=== PATIENT | female | born 1990 | race Hispanic/Latino ===

== ENCOUNTER 2017-05-06 09:00 | Emergency (ER) | payer OTHER ==
[2017-05-06 09:11] VITALS: RESP 18; O2SAT 99
--- NOTE | 2017-05-06 09:28 | ED PDOC ---
Lower Extremity Pain/Injury Time Seen by Provider: 05/06/17 09:04 Chief Complaint (Nursing): Lower Extremity Problem/Injury Chief Complaint (Provider): Toe Pain History Per: Patient History/Exam Limitations: no limitations Current Symptoms Are (Timing): Still Present Additional Complaint(s): Ashley Pak, a 26 year old female, presents to the ED complaining of left 5th digit toe pain. The patient states that she was dancing and hit her toe against furniture. The patient she has dislocated her toe before and was able to fix it on her own but this time she cannot. She reports that she had not taken anything for pain. Past Medical History Reviewed: Historical Data, Nursing Documentation, Vital Signs Vital Signs: Last Vital Signs Temp 98.4 F 05/06/17 09:10 Pulse 61 05/06/17 09:10 Resp 18 05/06/17 09:10 BP 116/66 05/06/17 09:10 Pulse Ox 99 05/06/17 09:10 - Medical History PMH: Asthma, Fractures (toe) - Surgical History Surgical History: No Surg Hx - Family History Family History: States: Unknown Family Hx - Home Medications Home Medications: Ambulatory Orders Medication Instructions Recorded Acetaminophen with Codeine 1 tab PO Q6H PRN #10 tab 05/06/17 [Tylenol with Codeine No. 3 300 mg-30 mg] Naproxen [Naprosyn] 500 mg PO BID PRN #15 tablet 05/06/17 - Allergies Allergies/Adverse Reactions: Allergies Allergy/AdvReac Type Severity Reaction Status Date / Time No Known Allergies Allergy Verified 05/06/17 09:13 Review of Systems Musculoskeletal: Positive for: Other (Left fifth digit toe pain) Physical Exam - Reviewed Nursing Documentation Reviewed: Yes Vital Signs Reviewed: Yes - Physical Exam Appears: Positive for: Non-toxic, No Acute Distress Extremity: Positive for: Other (Tenderness left 5th digit toe; no erythema; no obvious deformity.). Negative for: Normal ROM (decreased ROM of left toe 5th digit secondary to pain.), Tenderness, Deformity, Swelling Neurologic/Psych: Positive for: Alert, Oriented, Gait - ECG O2 Sat by Pulse Oximetry: 99 (RA) Pulse Ox Interpretation: Normal Medical Decision Making Medical Decision Makin Initial Impression: 26 year old female presenting with toe pain Initial Plan: * Upreg * Motrin Tab 600mg PO * RAD Foot Left 5th digit * Reevaluation PROCEDURE NOTE: Reduction attempted X 1 using Nitrous Oxide, pt did not tolerate pain. Podiatry consulted for evaluation. POST-REDUCTION XR: No change. Explained to patient repeat XR results and need for outpatient follow-up with Podiatry. Pt tearful, stating she is afraid of the pain, Percocet 1 tab and crutches ordered. Pt to be discharged with Rx pain medication. Scribe Attestation Documented by Shilpi Smart acting as a scribe for Virginia Lisa MD. Provider Attestation All medical record entries made by the Scribe were at my direction and personally dictated by me. I have reviewed the chart and agree that the record accurately reflects my personal performance of the history, physical exam, medical decision making, and the department course for this patient. I have also personally directed, reviewed, and agree with the discharge instructions and disposition. Disposition - Clinical Impression Clinical Impression: Subluxation of toe - Disposition Referrals: Artur Owusu DPM [Staff Provider] - Disposition: Routine/Home Disposition Time: 13:53 Condition: STABLE Prescriptions: Acetaminophen with Codeine [Tylenol with Codeine No. 3 300 mg-30 mg] 1 tab PO Q6H PRN #10 tab PRN Reason: Pain, Severe (8-10) Naproxen [Naprosyn] 500 mg PO BID PRN #15 tablet PRN Reason: Pain, Moderate (4-7) Instructions: Foot Contusion (ED) Forms: [facility] [facility] (Korean)
--- NOTE | 2017-05-06 10:04 | RAD ---
PROCEDURE: Left small finger radiographs. HISTORY: Pain, injury COMPARISON: None. TECHNIQUE: AP radiograph of the left hand, as well as spot oblique and lateral images of left small finger were obtained. FINDINGS: LEFT SMALL FINGER: Bone alignment and mineralization are normal. There is no acute fracture or bone destruction. There is a small plantar calcaneal spur. JOINTS: There is mild lateral subluxation of the 5th proximal interphalangeal joint. Ankle mortise maintained. Talar dome intact SOFT TISSUES: Normal. OTHER FINDINGS: None. IMPRESSION: No acute fracture. Suspect mild lateral subluxation of the 5th proximal interphalangeal joint.
--- NOTE | 2017-05-06 11:45 | CP.PCM.CON ---
History of Present Illness - History of Present Illness History of Present Illness: 26 year old female presents to ED complaining of left fifth digit pain. Patient states that she was dancing last night with a friend when she stubbed the toe causing it to dislocate. Patient states that she has dislocated this same digit at least 7 times over the last 13 years. She has also dislocated her fifth digit on the contralateral side multiple times as well. With each dislocation she has been able to reduce the digit back into proper alignment on her own but she states that this time the digit did not dislocate out to the side as it normally does, instead it dislocated down and hurt more than normal. She was unable to reduce it on her own so she decided to come to the ED. Patient denies taking any pain medication at this time. Patient denies any PMH, current medications, allergies or past surgeries. She states that she smokes one to two cigarettes a day, drinks alcohol socially and smoke marijuana occasionally. Patient denies any further pedal complaints at this time. Patient denies N/V/F/C /CP/SOB Review of Systems - Review of Systems Review of Systems: ROS unremarkable outside of HPI Past Patient History - Past Social History Smoking Status: Light Smoker < 10 Cigarettes Daily - PULMONARY Hx Asthma: Yes - MUSCULOSKELETAL/RHEUMATOLOGICAL Hx Fractures: Yes (toe) - PSYCHIATRIC Hx Substance Use: No Meds Home Medications: Home Medication List Medication Instructions Recorded Confirmed Type Acetaminophen with Codeine 1 tab PO Q6H PRN #10 tab 05/06/17 Rx [Tylenol with Codeine No. 3 300 mg-30 mg] Naproxen [Naprosyn] 500 mg PO BID PRN #15 tablet 05/06/17 Rx Allergies/Adverse Reactions: Allergies Allergy/AdvReac Type Severity Reaction Status Date / Time No Known Allergies Allergy Verified 05/06/17 09:13 Physical Exam - Constitutional Appears: Well, Non-toxic - Extremities Exam Additional comments: LE focused exam: Vasc: DP/PT pulses palpable 2/4 b/l. CFT < 3 seconds to digits 1-5 b/l. Skin temperature warm to warm from proximal to distal. Non-pitting edema noted to left fifth digits Neuro: Epicritic and protective sensation grossly intact b/l Derm: No open lesions, wounds, maceration, xerosis, or abnormal growth noted at this time. Ecchymosis noted to left fifth digit MSK: POP noted to left fifth digit Xray: Left fifth digit distal phalanx noted to be plantarly dislocated. No acute fracture noted at this time - Neurological Exam Neurological exam: Alert, Oriented x3 - Psychiatric Exam Psychiatric exam: Normal Affect, Normal Mood Results - Vital Signs Recent Vital Signs: Last Vital Signs Temp 98.4 F 05/06/17 09:10 Pulse 61 05/06/17 09:10 Resp 18 05/06/17 09:10 BP 116/66 05/06/17 09:10 Pulse Ox 99 05/06/17 09:39 Assessment & Plan - Assessment and Plan (Free Text) Assessment: 26 year old female seen in ED for plantarly dislocated left fifth distal phalanx Plan: Patient was seen and evaluated Charts, labs and vitals reviewed Plan discussed with attending Dr. Owusu Local anesthesia administered to base of left fifth digit Manual closed reduction of left fifth digit distal phalanx attempted Followup xrays reveal that left fifth digit distal phalanx still plantarly dislocated Arcadio splinted left fifth digit to left fourth digit Dispensed surgical shoe, crutches and one tab percocet to patient Patient to follow up with Dr. Owusu at his private clinic
[2017-05-06] MEDS ORDERED: Lidocaine 1% Inj (20ml) ONE (11:52)
--- NOTE | 2017-05-06 13:21 | RAD ---
PROCEDURE: Radiographs of the left 5th toe HISTORY: Post-reduction COMPARISON: None. FINDINGS: BONES: No acute fracture is present. No bony destructive lesion is seen. JOINTS: Status post close reduction, the there is near normal alignment of the phalanges at the proximal PIP joint in the 5th toe. SOFT TISSUE: Normal. No foreign body is seen. OTHER FINDINGS: None. IMPRESSION: Status post close reduction, near normal alignment at the proximal interphalangeal joint of the 5th toe.
[2017-05-06] MEDS ORDERED: Oxycodone/Acetaminophen 5/325 mg Tab PO STA (13:53)
[2017-05-06] MEDS ORDERED: Oxycodone/Acetaminophen 5/325 mg Tab ONE (14:01)
[2017-05-06 14:18] VITALS: BP 128/78; PULSE 78; TEMP 97.6
== END 2017-05-06 14:34 | disposition home or self-care (01) ==
LOC: H.ER 09:00
DX: S93.145A Subluxation of metatarsophalangeal joint of left lesser toe(s), initial encounter (principal); W22.8XXA Striking against or struck by other objects, initial encounter; Y92.89 Other specified places as the place of occurrence of the external cause